=== PATIENT | male | born 1985 | race Caucasian/White ===

== ENCOUNTER 2022-01-03 21:24 | Emergency (ER) | payer MEDICAID ==
[~2022-01-03] VITALS: Ht 160 cm; Wt 75.3 kg
[2022-01-03 22:02] VITALS: BP 123/79
[2022-01-03] MEDS ORDERED: MAGNESIUM/ALUMINUM HYDROXIDE/SIMETHICONE 30ML UDC PO STA (22:08)
[2022-01-03] MEDS ORDERED: FAMOTIDINE 20MG/2ML VIAL IV STA (22:08)
[2022-01-03] MEDS ORDERED: SODIUM CHLORIDE 0.9% 1,000 ML IV ONE (22:15)
[2022-01-03 22:55] LABS: BASOPHILS % 0.6 % (0.0-2.0); EOSINOPHILS % 10.7 % (0.0-5.0); HEMATOCRIT. 48.4 % (42.0-52.0); HEMOGLOBIN. 16.4 g/dL (14.0-18.0); LYMPHOCYTES % 23.4 % (20.0-50.0); MEAN CORPUSCULAR HEMOGLOBIN 30.2 pg (28.0-32.0); MEAN CORPUSCULAR VOLUME 89.3 fL (80.0-94.0); MEAN PLATELET VOLUME 7.5 fl (7.4-10.4); MONOCYTES % 7.4 % (2.0-8.0); NEUTROPHILS % 57.9 % (40.0-76.0); PLATELET 318 x1000/uL (130-400); RED BLOOD CELL COUNT 5.42 mill/uL (4.7-6.1); RED CELL DISTRIBUTION WIDTH 13.9 % (11.6-14.6)
[2022-01-03 22:57] LABS: CLARITY URINE CLEAR (CLEAR); COLOR URINE YELLOW (YELLOW); KETONES URINE NEGATIVE (NEGATIVE); LEUKOCYTE ESTERASE URINE NEGATIVE (NEGATIVE); NITRITE URINE NEGATIVE (NEGATIVE); OCCULT BLOOD URINE NEGATIVE (NEGATIVE); PH URINE 6.5 (4.5-8.0); PROTEIN URINE NEGATIVE (NEGATIVE); SPECIFIC GRAVITY URINE 1.014 (1.005-1.030); UROBILINOGEN URINE 0.2 E.U./dL (0.2-1.0)
[2022-01-03 23:00] LABS: CHLORIDE 106 mEq/L (98-107)
[2022-01-04] MEDS ORDERED: MAG-55 MT (00:33)
== END 2022-01-04 01:50 | disposition home or self-care (01) ==
LOC: ER 21:24
DX: K76.0 Fatty (change of) liver, not elsewhere classified (principal); R74.01 Elevation of levels of liver transaminase levels
CPT/HCPCS: 36415; 76705; 80053; 81003; 83690; 85025; 93005; 96361; 96374; 99285; J3490; J7030

== ENCOUNTER 2022-08-02 20:34 | Emergency (ER) | payer MEDICAID ==
[~2022-08-02] VITALS: Ht 172.7 cm; Wt 75.0 kg
[~2022-08-02 20:34] MED LIST: MAG-55 MT
[2022-08-02 20:49] VITALS: BP 131/74
[2022-08-02] MEDS ORDERED: ACETAMINOPHEN 325MG TABLET PO STA (23:59)
[2022-08-03] MEDS ORDERED: FAMO40TA70 MT (02:07)
[2022-08-03] MEDS ORDERED: CYCL10TA21 MT (02:08)
[2022-08-03] MEDS ORDERED: ACETAMINOPHEN 325MG TABLET PO NR (02:15)
== END 2022-08-03 02:42 | disposition home or self-care (01) ==
LOC: ER 20:34
DX: R10.13 Epigastric pain (principal); G89.29 Other chronic pain
CPT/HCPCS: 99282; 99283